=== PATIENT | female | born 1985 ===

== ENCOUNTER 2019-01-06 10:46 | Emergency (ER) ==
[~2019-01-06] VITALS: Ht 157.5 cm; Wt 85.3 kg
--- OUTSIDE RECORDS SUMMARY | 2019-01-06 10:49 | XMS REPORT ---
Author Author [facility] Address Unknown Phone Unavailable Care Team Providers Care Wet Silk Hanger Name Role Phone Unavailable Unavailable Problems This patient has no known problems. Allergies, Adverse Reactions, Alerts This patient has no known allergies or adverse reactions. Medications This patient has no known medications. Results Test Description Test Time Test Comments Text Results Atomic Results Result Comments B-TYPE NATRIURETIC FACTOR (BNP) 2017-02-01 11:42:00 B-TYPE NATRIURETIC PEPTIDE (BEAKER) (test ihps=211) 14 pg/mL 0-100 CREATINE KINASE (CK), TOTAL AND [id number] 11:42:00* Test Item Value Reference Range Comments CREATINE KINASE TOTAL (BEAKER) (test gdii=205) 165 U/L 29-200 CREATINE KINASE-MB (BEAKER) (test ackj=679) 1.4 ng/mL 0.0-6.6 CREATINE KINASE-MB INDEX (BEAKER) (test avhs=048) 0.8 % Effective 08/11/2014: CK-MB Reference Range ChangeNew: 0.0-6.6 Previous: 0.0- 4.9CK-MB Reference Range:<6.7 Normal6.7-10.0 Borderline>10.0 Abnormal TROPONIN [id number] 11:42:00* Test Item Value Reference Range Comments TROPONIN I (BEAKER) (test xjmr=869) < ng/mL 0.00-0.03 Effective 08/11/2014: Reference Range ChangeNew: 0.00-0.03 Previous 0.00-0.15T roponin I (TnI) levels must be interpreted in the context of the presenting symp toms and the clinical findings. Elevated TnI levels indicate myocardial damage, but are not specific for ischemic heart disease. Elevated TnI levels are seen in patients with other cardiac conditions (including myocarditis and congestive he art failure), and slight TnI elevations occur in patients with other conditions, including sepsis, renal failure, acidosis, acute neurological disease, and pers istent tachyarrhythmia.BASIC METABOLIC [id number] 11:35:00* Test Item Value Reference Range Comments SODIUM (BEAKER) (test qdie=246) 139 meq/L 136-145 POTASSIUM (BEAKER) (test ylkx=092) 3.9 meq/L 3.5-5.1 CHLORIDE (BEAKER) (test ruyq=993) 107 meq/L 98-107 CO2 (BEAKER) (test drzq=546) 21 meq/L 22-29 BLOOD UREA NITROGEN (BEAKER) (test xezs=105) 25 mg/dL 7-21 CREATININE (BEAKER) (test ajkc=404) 0.86 mg/dL 0.57-1.25 GLUCOSE RANDOM (BEAKER) (test glsv=877) 84 mg/dL 70-105 CALCIUM (BEAKER) (test iolg=081) 9.2 mg/dL 8.4-10.2 EGFR (BEAKER) (test cfpf=9467) 76 mL/min/1.73 sq m ESTIMATED GFR IS NOT ACCURATE CREATININE CLEARANCE IN PREDICTING GLOMERULAR FILTRATION RATE. ESTIMATED GFR IS NOT APPLICABLE FOR DIALYSIS PATIENTS. CBC W/PLT COUNT & AUTO [id number] 11:23:00* Test Item Value Reference Range Comments WHITE BLOOD CELL COUNT (BEAKER) (test oonl=750) 4.5 K/ L 4.0-10.0 RED BLOOD CELL COUNT (BEAKER) (test cqle=593) 3.96 M/ L 4.00-5.00 HEMOGLOBIN (BEAKER) (test ikhd=932) 12.7 GM/DL 12.0-15.0 HEMATOCRIT (BEAKER) (test fhvx=160) 35.9 % 36.0-45.0 MEAN CORPUSCULAR VOLUME (BEAKER) (test kduk=837) 90.6 fL 82.0-99.0 MEAN CORPUSCULAR HEMOGLOBIN (BEAKER) (test uhjk=471) 32.0 pg 27.0-33.0 MEAN CORPUSCULAR HEMOGLOBIN CONC (BEAKER) (test duxm=423) 35.3 GM/DL 32.0-36.0 RED CELL DISTRIBUTION WIDTH (BEAKER) (test rzeq=405) 12.2 % 10.3-14.2 PLATELET COUNT (BEAKER) (test xgli=752) 213 K/CU MM 150-430 MEAN PLATELET VOLUME (BEAKER) (test pszb=358) 6.6 fL 6.5-10.5 NUCLEATED RED BLOOD CELLS (BEAKER) (test yfno=551) 0 /100 WBC 0-0 NEUTROPHILS RELATIVE PERCENT (BEAKER) (test wkjr=948) 39 % LYMPHOCYTES RELATIVE PERCENT (BEAKER) (test ihmj=261) 52 % MONOCYTES RELATIVE PERCENT (BEAKER) (test ewav=852) 7 % EOSINOPHILS RELATIVE PERCENT (BEAKER) (test pysa=425) 1 % BASOPHILS RELATIVE PERCENT (BEAKER) (test rxyy=461) 0 % NEUTROPHILS ABSOLUTE COUNT (BEAKER) (test jvwn=845) 1.74 K/ L 1.80-8.00 LYMPHOCYTES ABSOLUTE COUNT (BEAKER) (test tuny=059) 2.33 K/ L 1.48-4.50 MONOCYTES ABSOLUTE COUNT (BEAKER) (test xamg=196) 0.32 K/ L 0.00-1.30 EOSINOPHILS ABSOLUTE COUNT (BEAKER) (test hndm=554) 0.04 K/ L 0.00-0.50 BASOPHILS ABSOLUTE COUNT (BEAKER) (test wfem=480) 0.02 K/ L 0.00-0.20 0.00(MANUAL DIFFERENTIAL)2017-02-01 11:23:00* Test Item Value Reference Range Comments TOTAL COUNTED (BEAKER) (test uyvl=8703)
--- OUTSIDE RECORDS SUMMARY | 2019-01-06 10:49 | XMS REPORT | Clinical Summary ---
Author Author [facility] Address Unknown Phone Unavailable Care Team Providers Care Rn Sane Name Role Phone System, Provider Not In MD PCP Unavailable Allergies Comments Active Allergy Reactions Severity Noted Date Clonazepam 12/12/2018 Opioids - Morphine Itching 12/12/2018 Analogues Shellfish Derived 12/12/2018 Medications End Date Status Medication Sig Dispensed Refills Start Date Active estradiol (ESTRACE) 1 MG Take 1 tablet 1 tablet by mouth 9 daily. Active ibuprofen (ADVIL,MOTRIN) Take 200 mg 0 200 MG tablet by mouth every 6 (six) hours as needed for mild pain. 12/20/2018 traMADol (ULTRAM) 50 mg Take 1 tablet 20 tablet 0 tablet (50 mg total) 9 by mouth every 6 (six) hours as needed for moderate pain for up to 20 doses. Active Problems Problem Noted Date Right upper quadrant abdominal pain 12/12/2018 Encounters Care Team Description Date Type Specialty Chasity Hinojosa RN 12/14/2018 Patient Quality Outreach Solomon Stout MD CHOLECYSTECTOMY, LAPAROSCOPIC 12/13/2018 Surgery General Surgery [facility] Declan Pollock MD 12/13/2018 Anesthesia General Surgery Event Rani Hernandez PA-C Siddiqui, Imran Alam, MD Buddhism, Faby Zepeda MD Right upper quadrant abdominal pain (Primary Dx) 12/12/2018 Emergency General Surgery - 12/14/2018 N/A 12/12/2018 Intake Access after 01/05/2018 Family History Relation Name Status Comments Father Alive Mother Alive Social History Date Tobacco Use Types Packs/Day Years Used Never Smoker Smokeless Tobacco: Never Used Alcohol Use Drinks/Week oz/Week Comments Yes social Sex Assigned at Date Recorded Not on file Industry Job Start Date Occupation Not on file Not on file Not on file Travel End Travel History Travel Start No recent travel history available. Last Filed Vital Signs Time Taken Vital Sign Reading 12/14/2018 1:09 PM CDT Blood Pressure 119/67 12/14/2018 1:09 PM CDT Pulse 54 12/14/2018 12:11 PM CDT Temperature 36.7 C (98 F) 12/14/2018 12:11 PM CDT Respiratory Rate 15 12/14/2018 1:09 PM CDT Oxygen Saturation 98% - Inhaled Oxygen - Concentration 12/12/2018 11:44 AM CDT Weight 86.6 kg (191 lb) 12/12/2018 11:44 AM CDT Height 167.6 cm (5' 6") 12/12/2018 11:44 AM CDT Body Mass Index 30.83 Plan of Treatment Health Maintenance Due Date Last Done Comments CERVICAL CANCER SCREENING 2004 INFLUENZA VACCINE 04/24/2019 Procedures Comments Procedure Name Priority Date/Time Associated Diagnosis ESTIMATED GFR Routine 12/14/2018 6:30 AM CDT COMPREHENSIVE METABOLIC Routine 12/14/2018 PANEL 6:30 AM CDT HC COMPLETE BLD COUNT Routine 12/14/2018 W/AUTO DIFF 6:30 AM CDT CHOLECYSTECTOMY, 12/13/2018 acute cholecystitis LAPAROSCOPIC, WITH 1:35 PM CDT POSSIBLE CHOLANGIOGRAPHY SURGICAL PATHOLOGY Routine 12/13/2018 REQUEST 1:15 PM CDT NH AN ELECTIVE Routine 12/13/2018 ENDOTRACHEAL AIRWAY 12:51 PM CDT Procedure Note - Aura Mckeon CRNA - 12/13/2018 12:51 PM CDT Airway Date/Time: 12/13/2018 12:39 PM Performed by: Aura Mckeon CRNA Authorized by: Declan Gates MD Location: OR Urgency: Elective Difficult Airway: No Anesthesio logist: Declan Gates MD Resident/C RNA/AA: Aura Mckeon CRNA Performed by: resident/C RNA/AA Preoxygena mary with 100% O2: Yes C-spine Precaution s Maintained Throughout : Yes Mask Ventilatio n: Easy mask Final Airway Type: Endotrache al airway Final Endotrache al Airway: ETT Cuffed: Yes Technique Used: Direct laryngosco py Insertion Site: Oral Blade Type: Up ETT Size (mm): 7.0 Cuff at minimum occlusion pressure: Yes Measured from: Teeth ETT to Teeth (cm): 20 Placement Verified by: CO2 detection, direct visualizat ion and equal breath sounds Laryngosco pic view: Grade IIa - partial view of glottis Rapid Sequence Induction (RSI): No Modified RSI: No Number of Attempts at Approach: 1 Atraumati c DVOT withour difficulty .. BSEB... Mouth and teeth remain in pre induction condition NM HEPATOBILIARY STAT 12/12/2018 9:09 PM CDT US GALLBLADDER STAT 12/12/2018 12:36 PM CDT HCG QUALITATIVE, URINE Routine 12/12/2018 SCREEN 12:19 PM CDT ESTIMATED GFR STAT 12/12/2018 12:06 PM CDT URINALYSIS SCREEN AND STAT 12/12/2018 MICROSCOPY, WITH REFLEX 12:06 PM CDT TO CULTURE LIPASE LEVEL STAT 12/12/2018 12:06 PM CDT AMYLASE LEVEL STAT 12/12/2018 12:06 PM CDT COMPREHENSIVE METABOLIC STAT 12/12/2018 PANEL 12:06 PM CDT HC COMPLETE BLD COUNT STAT 12/12/2018 W/AUTO DIFF 12:06 PM CDT URINE CULTURE STAT 12/12/2018 12:06 PM CDT XR CHEST 1 VW PORTABLE STAT 12/12/2018 12:05 PM CDT after 01/05/2018 Results * Estimated GFR (12/14/2018 6:30 AM CDT) Only the most recent of 2 results within the time period is included. Estimated GFR >=90 mL/min/1.73 m2 [facility] Comment: [facility] CatergoryUnitsInte rpretation G1 >=90 Normal or high G2 60-89Mildly decreased G6a71-28 Mildly to moderately decreased R3k13-80 Moderately to severely decreased G4 15-29Severely decreased G5 <15Kidney failure The eGFR was calculated using the Chronic Kidney Disease Epidemiology Collaboration (CKD-EPI) equation. Interpretation is based on recommendations of the National Kidney Foundation-Kidney Disease Outcomes Quality Initiative (NKF-KDOQI) published in 2014. Specimen Plasma specimen Performing Organization Address City/[facility]/Zipcode Phone Number [facility] [place] [address] [place] [address] PATHOLOGY AND GENOMIC MEDICINE [facility] [address] [place] [address] [facility] * CBC with platelet and differential (12/14/2018 6:30 AM CDT) Only the most recent of 2 results within the time period is included. WBC 6.53 4.50 - 11.00 k/uL [facility] RBC 4.15 (L) 4.20 - 5.50 m/uL [facility] HGB 12.4 12.0 - 16.0 g/dL [facility] HCT 38.7 37.0 - 47.0 % [facility] MCV 93.3 82.0 - 100.0 fL [facility] MCH 29.9 27.0 - 34.0 pg [facility] MCHC 32.0 31.0 - 37.0 g/dL [facility] RDW - SD 40.8 37.0 - 55.0 fL [facility] MPV 9.7 8.8 - 13.2 fL [facility] Platelet count 253 150 - 400 k/uL [facility] Nucleated RBC 0.00 /100 WBC [facility] Neutrophils 78.4 (H) 39.0 - 69.0 % [facility] Lymphocytes 13.3 (L) 25.0 - 45.0 % [facility] Monocytes 7.8 0.0 - 10.0 % [facility] Eosinophils 0.0 0.0 - 5.0 % [facility] Basophils 0.2 0.0 - 1.0 % [facility] Specimen Blood Performing Organization Address City/[facility]/Zipcode Phone Number [facility] [address] [place] [address] PATHOLOGY AND GENOMIC MEDICINE [address] * Comprehensive metabolic panel (12/14/2018 6:30 AM CDT) Only the most recent of 2 results within the time period is included. Sodium 136 135 - 148 mEq/L [facility] Potassium 4.9 3.5 - 5.0 mEq/L [facility] Chloride 106 98 - 112 mEq/L [facility] CO2 21 (L) 24 - 31 mEq/L [facility] Anion gap 9@ANIO 7 - 15 mEq/L [facility] BUN 6 6 - 20 mg/dL [facility] Creatinine 0.80 0.50 - 0.90 mg/dL [facility] Glucose 142 (H) 65 - 99 mg/dL [facility] Calcium 9.4 8.3 - 10.2 mg/dL [facility] Protein 7.0 6.3 - 8.3 g/dL [facility] Comment: [facility] 4.6-7.0 g/dL 1 week 4.4-7.6 g/dL 7 months-1year 5.1-7.3 g/dL 1-2 years5.6-7 .5 g/dL >3 years6.0-8 .0 g/dL 18-150 6.3-8.3 g/dL Albumin 4.0 3.5 - 5.0 g/dL [facility] A/G ratio 1.3 0.7 - 3.8 [facility] Alkaline phosphatase 68 35 - 104 U/L [facility] AST 28 10 - 35 U/L [facility] ALT 29 5 - 50 U/L [facility] Total bilirubin 0.2 0.0 - 1.2 mg/dL [facility] Specimen Plasma specimen Performing Organization Address City/State/Zipcode Phone Number [facility] [address] [place] [address] PATHOLOGY AND GENOMIC MEDICINE [address] [place] [address] [facility] * Surgical pathology request (12/13/2018 1:15 PM CDT) [facility] DEPARTMENT OF PATHOLOGY AND GENOMIC MEDICINE Surgical pathology report See link below for PDF Lab [facility] DEPARTMENT OF Report PATHOLOGY AND GENOMIC MEDICINE Result status This is Final Report for [facility] DEPARTMENT OF [id number] PATHOLOGY AND GENOMIC MEDICINE Performing Organization Address City/State/Zipcode Phone Number [facility] [place] [address] [place] [address] PATHOLOGY AND GENOMIC MEDICINE * NM Hepatobiliary (HIDA Scan) (12/12/2018 9:09 PM CDT) Narrative Performed At Procedure:NM HEPATOBILIARY (HIDA SCAN) [facility] Clinical History:RUQ paincholecystitis suspected, with ejection fraction T echnique: The patient was injected with 4 mCi of [id number] intravenously, followed by dynamic imaging of the abdomen in the anterior projection for 1 hour. The patient was then given a 60 minute intravenous infusion of CCK 1.5 ug while dynamic imaging of the abdomen was performed; these images were used to calculate the gallbladder ejection fraction. Findings: There is normal uptake of tracer by the liver with normal excretion into the biliary tree. Tracer proceeds normally into the gallbladder and small bowel. Gallbladder ejection fraction=35% (normal is >30%) Impression: 1. No evidence of acute cholecystitis or common bile duct obstruction. 2. Normal gallbladder ejection fraction. [facility] Procedure Note Interface, Radiology Results Incoming - 12/12/2018 10:11 PM CDT Procedure: NM HEPATOBILIARY (HIDA SCAN) Clinical History: RUQ pain cholecystitis suspected, with ejection fraction Technique: The patient was injected with 4 mCi of [id number] intravenously, followed by dynamic imaging of the abdomen in the anterior projection for 1 hour. The patient was then given a 60 minute intravenous infusion of CCK 1.5 ug while dynamic imaging of the abdomen was performed; these images were used to calculate the gallbladder ejection fraction. Findings: There is normal uptake of tracer by the liver with normal excretion into the biliary tree. Tracer proceeds normally into the gallbladder and small bowel. Gallbladder ejection fraction=35% (normal is >30%) Impression: 1. No evidence of acute cholecystitis or common bile duct obstruction. 2. Normal gallbladder ejection fraction. [facility] Performing Organization Address [facility]/Zipcode Phone Number [facility] [address] [place] [address] * US Gallbladder (12/12/2018 12:36 PM CDT) Narrative Performed At EXAMINATION:US GALLBLADDER [facility] CLINICAL HISTORY:Abd painunspecified COMPARISON:None. FINDINGS: Gallbladder: No stones are identified within the gallbladder. The gallbladder wall is of normal thickness. No pericholecystic fluid. Small amount of sludge is present within the gallbladder. CBD:2 mm , within normal limits. Portal vein: The portal vein demonstrates normal hepatopedal flow. The portal vein measures. IMPRESSION: 1.Small amount of gallbladder sludge. No evidence to suggest biliary obstruction. [facility]-[id number] Procedure Note Hm Interface, Radiology Results Incoming - 12/12/2018 1:11 PM CDT EXAMINATION: US GALLBLADDER CLINICAL HISTORY: Abd pain unspecified COMPARISON: None. FINDINGS: Gallbladder: No stones are identified within the gallbladder. The gallbladder wall is of normal thickness. No pericholecystic fluid. Small amount of sludge is present within the gallbladder. CBD: 2 mm , within normal limits. Portal vein: The portal vein demonstrates normal hepatopedal flow. The portal vein measures . IMPRESSION: 1. Small amount of gallbladder sludge. No evidence to suggest biliary obstruction. [facility]-[id number] Performing Organization Address [facility] Phone Number [facility] [address] [place] [address] * hCG qualitative, urine screen (12/12/2018 12:19 PM CDT) [facility] qualitative, urine Negative Negative [facility] Comment: [facility] The manufacturers stated sensitivity of HcG test for serum is >/=10 mIU/ml and urine is >/=20mIU/ml. LOT [id number] Specimen Urine Performing Organization Address [facility]/Zipcode Phone Number [facility] DEPARTMENT [place] [id number] [place] [address] [place] [id number] PATHOLOGY AND GENOMIC MEDICINE [address] * Urinalysis screen and microscopy, with reflex to culture (12/12/2018 12:06 PM CDT) Specimen site Clean catch [facility] Color, UA Straw [facility] Appearance, UA Clear [facility] Specific gravity, UA 1.006 1.001 - 1.035 [facility] pH, UA 8.0 5.0 - 8.5 [facility] Protein, UA Negative Negative [facility] Glucose, UA Negative Negative [facility] Ketones, UA Negative Negative [facility] Bilirubin, UA Negative Negative [facility] Blood, UA Negative Negative [facility] Nitrite, UA Negative Negative [facility] Urobilinogen, UA Negative <2.0 [facility] Leukocyte esterase, UA Negative Negative [facility] Epithelial cells, UA Many /HPF [facility] WBC, UA None seen 0 - 4 /HPF [facility] RBC, UA None seen 0 - 5 /HPF [facility] Bacteria, UA None seen None seen [facility] Yeast, UA None seen [facility] Yeast with pseudohyphae, None seen [facility] Specimen Urine Performing Organization Address [facility] Phone Number [address] [place] [address] PATHOLOGY AND GENOMIC MEDICINE [address] * Urine culture (12/12/2018 12:06 PM CDT) Urine culture SEE COMMENTComment: [facility] Bacteriuria screen negative. [facility] Specimen Urine Performing Organization Address [facility] Phone Number [address] [place] [address] PATHOLOGY AND GENOMIC MEDICINE [address] * Lipase level (12/12/2018 12:06 PM CDT) Lipase 33 13 - 60 U/L [facility] Specimen Plasma specimen Performing Organization Address [facility] Phone Number [address] [place] [address] PATHOLOGY AND GENOMIC MEDICINE [address] [place] [address] [facility] * Amylase level (12/12/2018 12:06 PM CDT) Amylase 46 13 - 73 U/L [facility] Specimen Plasma specimen Performing Organization Address City/[facility] Phone Number [facility] DEPARTMENT [place] [id number] [place] [address] [place] [address] PATHOLOGY AND GENOMIC MEDICINE [facility] [address] [place] [address] [facility] * XR Chest 1 Vw Portable (12/12/2018 12:05 PM CDT) Narrative Performed At EXAMINATION:XR CHEST 1 VW PORTABLE [facility] CLINICAL HISTORY:cp XR CHEST 1 VW PORTABLEimages are submitted COMPARISON:NONE FINDINGS: The cardiac silhouette is normal in size. The pulmonary vasculature is within normal limits. The lung zones have no focal area of consolidation. There is no pleural effusion or pneumothorax. IMPRESSION: 1. There is no acute cardiopulmonary disease. [id number] Procedure Note Hm Interface, Radiology Results Incoming - 12/12/2018 12:13 PM CDT EXAMINATION: XR CHEST 1 VW PORTABLE CLINICAL HISTORY: cp XR CHEST 1 VW PORTABLE images are submitted COMPARISON: NONE FINDINGS: The cardiac silhouette is normal in size. The pulmonary vasculature is within normal limits. The lung zones have no focal area of consolidation. There is no pleural effusion or pneumothorax. IMPRESSION: 1. There is no acute cardiopulmonary disease. [id number] Performing Organization Address [facility] Cent[facility] Phone Number [facility] [address] [place] [address] after 01/05/2018 Insurance Payer Benefit Subscriber ID Type Phone Address Plan / Group MOHAN TAVAREZ xxxxxxxxxxx O RIGOBERTO PRESTON O Advance Directives Patient has advance care planning documents on file. For more information, nick cooper contact: [facility] [address] [place] [address]
--- OUTSIDE RECORDS SUMMARY | 2019-01-06 10:49 | XMS REPORT | Clinical Summary ---
Author Author [facility] Organization [facility] Address Unknown Phone Unavailable Care Team Providers Care Hoisting Engineer Name Role Phone Dionicio Garcia PCP Unavailable Allergies Comments Active Allergy Reactions Severity Noted Date Codeine Itching 02/01/2017 headache Hydrocodone-Acetaminophen 10/05/2014 Patient states no reaction to IV contrast to date. Shellfish Containing Nausea And 02/01/2017 Products Vomiting Medications Not on file Active Problems Not on file Social History Date Tobacco Use Types Packs/Day Years Used Never Smoker Alcohol Use Drinks/Week oz/Week Comments Yes socially Sex Assigned at Date Recorded Not on file Industry Job Start Date Occupation Not on file Not on file Not on file Travel End Travel History Travel Start No recent travel history available. Last Filed Vital Signs Not on file Plan of Treatment Not on file Results Not on fileafter 01/05/2018 Insurance Payer Benefit Subscriber ID Type Phone Address Plan / Group [facility] xxxxxxxxx HMO/POS CARE POS SELECT CHOICE
[2019-01-06 12:00] LABS: BASOPHILS % 0.4 % (0.0-1.0); EOSINOPHILS # (AUTO) 0.1 (0.0-0.4); EOSINOPHILS % 1.2 % (0.0-6.0); HEMATOCRIT 35.9 % (34.2-44.1); HEMOGLOBIN 12.3 g/dL (12.0-16.0); LYMPHOCYTES # (AUTO) 2.2 (1.0-3.2); LYMPHOCYTES % 43.9 % (18.0-39.1); MEAN CORPUSCULAR HEMOGLOBIN 30.1 pg (28-32); MEAN CORPUSCULAR HGB CONC 34.3 g/dL (31-35); MEAN CORPUSCULAR VOLUME 87.8 fL (81-99); MONOCYTES # (AUTO) 0.4 (0.2-0.8); MONOCYTES % 7.8 % (4.4-11.3); NEUTROPHILS # (AUTO) 2.3 (2.1-6.9); NEUTROPHILS % 46.5 % (38.7-80.0); PLATELET COUNT 246 x10e3/uL (140-360); RED BLOOD COUNT 4.09 x10e6/uL (3.6-5.1); RED CELL DISTRIBUTION WIDTH 11.9 % (11.7-14.4)
[2019-01-06 12:11] LABS: BILIRUBIN,URINE NEGATIVE (NEGATIVE); CLARITY,URINE CLEAR (CLEAR); COLOR,URINE YELLOW (YELLOW); KETONES,URINE NEGATIVE (NEGATIVE); LEUKOCYTE ESTERASE ,URINE NEGATIVE (NEGATIVE); NITRITE,URINE NEGATIVE (NEGATIVE); PREGNANCY TEST, URINE NEGATIVE (NEGATIVE); PROTEIN,URINE DIPSTICK NEGATIVE (NEGATIVE); URINE UROBILINOGEN 0.2 mg/dL (0.2 - 1)
[2019-01-06 12:16] LABS: ALANINE AMINOTRANSFERASE 83 IU/L (0-55); ALBUMIN/GLOBULIN RATIO 1.1 (0.8-2.0); ALKALINE PHOSPHATASE 104 IU/L (40-150); AMYLASE 47 U/L (25-125); ANION GAP 11.6 mmol/L (8-16); BLOOD UREA NITROGEN 8 mg/dL (7-26); BUN/CREATININE RATIO 10 (6-25); CALCIUM 9.7 mg/dL (8.4-10.2); CARBON DIOXIDE 23 mmol/L (22-29); CHLORIDE 107 mmol/L (98-107); CREATININE, SERUM 0.82 mg/dL (0.57-1.11); EST GLOMERULAR FILTRATION RATE > 60 ML/MIN (60-); GLUCOSE 93 mg/dL (74-118); LIPASE 23 U/L (8-78); POTASSIUM 3.6 mmol/L (3.5-5.1); SODIUM 138 mmol/L (136-145)
[2019-01-06 12:16] LABS: BACTERIA,URINE FEW /HPF; EPITHELIAL CELLS,URINE FEW /LPF; WBC,URINE (MAN) 0-5 /HPF (0-5)
[2019-01-06] MEDS ORDERED: SODIUM CHLORIDE 0.9% 100 ML 100 ML IV ONE (12:45)
[2019-01-06] MEDS ORDERED: SODIUM CHLORIDE 0.9% 1000ML 1,000 ML IV ONE (12:45)
[2019-01-06] MEDS ORDERED: ONDANSETRON HCL INJ 2MG/ML 2ML 2 MG/ML VIAL IV ONE (13:00)
[2019-01-06] MEDS ORDERED: ACETAMINOPHEN/CODEINE 300MG - 30MG TAB PO ONE (13:00)
--- NOTE | 2019-01-06 14:38 | Diagnostic Imaging Report ---
EXAM: CT Abdomen and Pelvis WITH contrast INDICATION: Abdominal pain status post lap cholecystectomy. COMPARISON: None. TECHNIQUE: Abdomen and pelvis were scanned utilizing a multidetector helical scanner from the lung base to the pubic symphysis after administration of IV contrast. Coronal and sagittal reformations were obtained. Routine protocol was performed. Scan was performed when during portal venous phase. IV CONTRAST: 100 cc of Isovue-370. ORAL CONTRAST: Water COMPLICATIONS: None RADIATION DOSE: Total DLP: 622.3 mGy*cm Dose modulation, iterative reconstruction, and/or weight based adjustment of the mA/kV was utilized to reduce the radiation dose to as low as reasonably achievable. FINDINGS: LINES and TUBES: None. LOWER THORAX: There is a 2 cm simple appearing cyst abutting the right pericardium (coronal image 36; -6 HU). HEPATOBILIARY: Diffuse hepatic steatosis. No evidence of focal lesion. No biliary ductal dilation. GALLBLADDER: Status post cholecystectomy. SPLEEN: No splenomegaly. PANCREAS: No focal masses or ductal dilatation. ADRENALS: No adrenal nodules KIDNEYS/URETERS: Kidneys enhance symmetrically. No evidence of hydronephrosis, solid mass, or stone. GI TRACT: No evidence of wall thickening or distension. Status post appendectomy. PELVIC ORGANS/BLADDER: Status post hysterectomy. LYMPH NODES: No lymphadenopathy. VESSELS: Unremarkable. PERITONEUM / RETROPERITONEUM: No free air or fluid. BONES AND SOFT TISSUES: No acute osseous abnormality. Bilateral breast implants. CONCLUSION: Status post cholecystectomy, appendectomy, and hysterectomy. No evidence of drainable fluid collection. Diffuse hepatic steatosis. Incidental simple appearing 2 cm right pericardiac cyst. Signed by: Dr. Cristhian Lang MD on 01/06/2019 2:35 PM
[2019-01-06] MEDS ORDERED: KETOROLAC TROMETHAMINE 30 MG/ML VIAL ONE (15:28)
[2019-01-06] MEDS ORDERED: HYDROCODONE/APAP 5MG-325MG TAB PO ONE (15:30)
[2019-01-06] MEDS ORDERED: HYDROCODONE/APAP 5MG-325MG TAB ONE (15:30)
[2019-01-06] MEDS ORDERED: KETOROLAC TROMETHAMINE 30 MG/ML VIAL IV STA (15:30)
[2019-01-06] MEDS ORDERED: IOPAMIDOL 370 MG/ML 200 ML INFUS..BTL INJ ONE (15:53)
[2019-01-06] MEDS ORDERED: SODIUM CHLORIDE 0.9% 50ML 50 ML ONE (15:53)
[2019-01-06] MEDS ORDERED: TYLENOL WITH C1 EACH PO (16:15)
[2019-01-06] MEDS ORDERED: ZOFRAN4 MG SL (16:15)
== END 2019-01-06 16:25 | disposition home or self-care (01) ==
LOC: ER 10:46
DX: R10.13 Epigastric pain (principal); R11.0 Nausea; K21.9 Gastro-esophageal reflux disease without esophagitis
CPT/HCPCS: 36415; 74177; 80053; 81001; 81025; 82150; 83690; 85025; 99284; J1885; J2405; J7030; Q9967